=== PATIENT | male | born 1965 | race American Indian/Alaskan Native ===

== ENCOUNTER 2020-12-12 17:27 | Observation (INO) | payer OTHER ==
--- NOTE | 2020-12-12 17:46 | Event Note ---
ED Screening Note ED Screening Note: Patient states that he went to his primary care doctor due to having neck pain for 4 months, he has a history of herniated disc, he denies any fall or injury He states that he went to his primary care doctor and was advised that his heart rate was high and his blood pressure was high they performed an EKG which shows a narrow complex tachycardia He denies any palpitations, feeling like his heart is racing or skipping beats He denies any chest pain, shortness of breath, numbness, abdominal pain He states his right leg feels slightly weaker but he is ambulating without difficulty He denies any tobacco use, he denies any drug use, he endorses occasional alcohol use, he denies any supplements or energy drinks He was sent by the primary care provider for SVT and right leg weakness and slurred speech Cranial nerves II through XII intact, no facial asymmetry, no pronator drift, 5 out of 5 muscle strength in the bilateral upper extremities and lower extremities, normal gait, sensation intact, no focal neuro deficits on exam I do not hear any obvious slurring of the speech and patient appropriately answers questions and is alert and oriented x4 This initial assessment/diagnostic orders/clinical plan/treatment(s) is/are subject to change based on patients health status, clinical progression and re- assessment by fellow clinical providers in the ED. Further treatment and workup at subsequent clinical providers discretion. Patient/guardian urged not to elope from the ED as their condition may be serious if not clinically assessed and managed. Initial orders include: Labs, EKG, urine
[2020-12-12 18:31] LABS: Basophils # (Auto) 0.1 K/mm3 (0.0-0.1); Basophils % (Auto) 0.5 % (0.0-1.8); Eosinophils # (Auto) 0.2 K/mm3 (0.0-0.4); Eosinophils % (Auto) 1.7 % (0.0-4.3); Hematocrit 46.3 % (35.5-45.6); Hemoglobin 15.5 gm/dl (11.8-15.2); Lymphocytes % (Auto) 31.1 % (13.4-35.0); Mean Corpuscular HGB Conc 33 % (32-34); Mean Corpuscular Volume 93 fl (84-94); Monocytes # (Auto) 0.8 K/mm3 (0.0-0.8); Monocytes % (Auto) 8.3 % (0.0-7.3); Platelet Count 271 K/mm3 (140-440)
--- NOTE | 2020-12-12 18:36 | XRay Report ---
CHEST 2 VIEWS INDICATION: SVT. COMPARISON: None FINDINGS: SUPPORT DEVICES: None. HEART: Within normal limits. LUNGS/PLEURA: No acute air space or interstitial disease. No pneumothorax. ADDITIONAL FINDINGS: None. IMPRESSION: 1. No acute findings. Signer Name: Naseem Graves MD Signed: 12/12/2020 6:31 PM Workstation Name: [id number]
[2020-12-12 18:42] LABS: Bilirubin,Urine NEG (Negative); Blood,Urine NEG (Negative); Color,Urine Yellow (Yellow); Mucus,Urine FEW /HPF; Protein,Urine <15 mg/dL mg/dL (Negative); WBC,Urine < 1.0 /HPF (0.0-6.0)
[2020-12-12 18:51] LABS: Amphetamine Screen,Urine Negative; Benzodiazepines Screen,Urine Negative; Cocaine Screen,Urine Negative; Methadone Screen,Urine Negative; Opiate Screen,Urine Negative
[2020-12-12 18:57] LABS: Alanine Aminotransferase 10 units/L (7-56); Albumin 4.6 g/dL (3.9-5); BUN/Creatinine Ratio 12; Blood Urea Nitrogen 12 mg/dL (9-20); Calcium 9.3 mg/dL (8.4-10.2); Hemolysis Index 22
[2020-12-12 19:08] LABS: Cannabinoid Screen,Urine Positive
--- NOTE | 2020-12-12 19:35 | Emergency Department Report ---
ED General Adult HPI - General Chief complaint: Neuro Symptoms/Deficit Stated complaint: SLURRED SPEECH Time Seen by Provider: 12/12/20 17:44 Source: patient Mode of arrival: Ambulatory Limitations: No Limitations - History of Present Illness Initial comments: The patient presents to the emergency department from his primary care doctor's office for slurred speech and tachycardia. Patient states that he went to a doctor's office today for follow-up appointment for his neck pain due to bulging disc. Patient states that this doctor has been treating his pain for his bulging disks. Patient states at that visit his blood pressure was elevated and he also had elevated heart rate so he was told to follow-up at his primary care doctor's office. Patient states upon seeing his primary care physician today he was told to come to the emergency department for evaluation. Patient states he said intermittent slurred speech since Wednesday and states that his slurred speech comes and goes at times. Patient endorses mild chest tightness but denies zo chest pain. -: Gradual Location: chest Radiation: non-radiation Severity scale (0 -10): 1 Quality: dull Consistency: constant Improves with: none Worsens with: none Associated Symptoms: denies other symptoms Treatments Prior to Arrival: none - Related Data Allergies Allergy/AdvReac Type Severity Reaction Status Date / Time No Known Allergies Allergy Unverified 12/12/20 17:29 ED Review of Systems ROS: Stated complaint: SLURRED SPEECH Other details as noted in HPI Constitutional: denies: chills, fever Eyes: denies: eye pain, eye discharge, vision change ENT: denies: ear pain, throat pain Respiratory: denies: cough, shortness of breath, wheezing Cardiovascular: palpitations. denies: chest pain Endocrine: no symptoms reported Gastrointestinal: denies: abdominal pain, nausea, diarrhea Genitourinary: denies: urgency, dysuria Musculoskeletal: denies: back pain, joint swelling, arthralgia Skin: denies: rash, lesions Neurological: denies: headache, weakness, paresthesias Psychiatric: denies: anxiety, depression Hematological/Lymphatic: denies: easy bleeding, easy bruising ED Past Medical Hx - Past Medical History Previous Medical History?: Yes Hx Hypertension: Yes Additional medical history: SLIPPED DISC IN NECK - Surgical History Past Surgical History?: No - Social History Smoking Status: Never Smoker Substance Use Type: None ED Physical Exam - General Limitations: No Limitations General appearance: alert, in no apparent distress - Head Head exam: Present: atraumatic, normocephalic - Eye Eye exam: Present: normal appearance, PERRL - ENT ENT exam: Present: mucous membranes moist - Neck Neck exam: Present: normal inspection - Respiratory Respiratory exam: Present: normal lung sounds bilaterally. Absent: respiratory distress - Cardiovascular Cardiovascular Exam: Present: normal rhythm, tachycardia. Absent: systolic murmur, diastolic murmur, rubs, gallop - GI/Abdominal GI/Abdominal exam: Present: soft, normal bowel sounds. Absent: distended, tenderness - Rectal Rectal exam: Present: deferred - Extremities Exam Extremities exam: Present: normal inspection - Back Exam Back exam: Present: normal inspection - Neurological Exam Neurological exam: Present: alert, oriented X3, CN II-XII intact. Absent: motor sensory deficit - Psychiatric Psychiatric exam: Present: normal affect, normal mood - Skin Skin exam: Present: warm, dry, intact, normal color. Absent: rash ED Course Vital Signs 12/12/20 12/12/20 12/12/20 17:32 18:47 18:48 Temperature 98.8 F Pulse Rate 121 H 111 H 112 H Respiratory 20 18 18 Rate Blood Pressure 147/104 Blood Pressure 134/90 [Left] O2 Sat by Pulse 97 96 96 Oximetry 12/12/20 12/12/20 12/12/20 19:01 19:31 20:01 Temperature Pulse Rate 110 H 117 H 110 H Respiratory 17 22 Rate Blood Pressure 131/89 147/95 144/95 Blood Pressure [Left] O2 Sat by Pulse 95 97 96 Oximetry 12/12/20 12/12/20 12/12/20 20:31 21:00 22:44 Temperature Pulse Rate 112 H 109 H Respiratory 23 28 H 18 Rate Blood Pressure 144/95 134/96 Blood Pressure [Left] O2 Sat by Pulse 94 93 Oximetry ED Medical Decision Making - Lab Data Result diagrams: 12/12/20 18:00 12/12/20 18:00 Lab Results 12/12/20 12/12/20 12/12/20 Range/Units 18:00 18:00 18:00 WBC 9.5 (4.5-11.0) K/mm3 RBC 5.00 (3.65-5.03) M/mm3 Hgb 15.5 H (11.8-15.2) gm/dl Hct 46.3 H (35.5-45.6) % MCV 93 (84-94) fl MCH 31 (28-32) pg MCHC 33 (32-34) % RDW 14.0 (13.2-15.2) % Plt Count 271 (140-440) K/mm3 Lymph % (Auto) 31.1 (13.4-35.0) % Adams % (Auto) 8.3 H (0.0-7.3) % Eos % (Auto) 1.7 (0.0-4.3) % Baso % (Auto) 0.5 (0.0-1.8) % Lymph # (Auto) 3.0 (1.2-5.4) K/mm3 Adams # (Auto) 0.8 (0.0-0.8) K/mm3 Eos # (Auto) 0.2 (0.0-0.4) K/mm3 Baso # (Auto) 0.1 (0.0-0.1) K/mm3 Seg Neutrophils % 58.4 (40.0-70.0) % Seg Neutrophils # 5.5 (1.8-7.7) K/mm3 Sodium 135 L (137-145) mmol/L Potassium 3.8 (3.6-5.0) mmol/L Chloride 98.6 (98-107) mmol/L Carbon Dioxide 26 (22-30) mmol/L Anion Gap 14 mmol/L BUN 12 (9-20) mg/dL Creatinine 1.0 (0.8-1.3) mg/dL Estimated GFR > 60 ml/min BUN/Creatinine Ratio 12 % Glucose 103 H (75-100) mg/dL Calcium 9.3 (8.4-10.2) mg/dL Magnesium 1.90 (1.7-2.3) mg/dL Total Bilirubin 0.40 (0.1-1.2) mg/dL AST 16 (5-40) units/L ALT 10 (7-56) units/L Alkaline Phosphatase 68 (35-129) units/L Total Creatine Kinase 146 (55-170) units/L Troponin T < 0.010 (0.00-0.029) ng/mL Total Protein 7.5 (6.3-8.2) g/dL Albumin 4.6 (3.9-5) g/dL Albumin/Globulin Ratio 1.6 % TSH 2.140 (0.270-4.200) mlU/mL Urine Color (Yellow) Urine Turbidity (Clear) Urine pH (5.0-7.0) Ur Specific [place] (1.003-1.030) Urine Protein (Negative) mg/dL Urine Glucose (UA) (Negative) mg/dL Urine Ketones (Negative) mg/dL Urine Blood (Negative) Urine Nitrite (Negative) Urine Bilirubin (Negative) Urine Urobilinogen (<2.0) mg/dL Ur Leukocyte Esterase (Negative) Urine WBC (Auto) (0.0-6.0) /HPF Urine RBC (Auto) (0.0-6.0) /HPF Urine Mucus /HPF Urine Opiates Screen Urine Methadone Screen Ur Barbiturates Screen Ur Phencyclidine Scrn Ur Amphetamines Screen U Benzodiazepines Scrn Urine Cocaine Screen U Marijuana (THC) Screen Drugs of Abuse Note 12/12/20 12/12/20 Range/Units Unknown Unknown WBC (4.5-11.0) K/mm3 RBC (3.65-5.03) M/mm3 Hgb (11.8-15.2) gm/dl Hct (35.5-45.6) % MCV (84-94) fl MCH (28-32) pg MCHC (32-34) % RDW (13.2-15.2) % Plt Count (140-440) K/mm3 Lymph % (Auto) (13.4-35.0) % Adams % (Auto) (0.0-7.3) % Eos % (Auto) (0.0-4.3) % Baso % (Auto) (0.0-1.8) % Lymph # (Auto) (1.2-5.4) K/mm3 Adams # (Auto) (0.0-0.8) K/mm3 Eos # (Auto) (0.0-0.4) K/mm3 Baso # (Auto) (0.0-0.1) K/mm3 Seg Neutrophils % (40.0-70.0) % Seg Neutrophils # (1.8-7.7) K/mm3 Sodium (137-145) mmol/L Potassium (3.6-5.0) mmol/L Chloride (98-107) mmol/L Carbon Dioxide (22-30) mmol/L Anion Gap mmol/L BUN (9-20) mg/dL Creatinine (0.8-1.3) mg/dL Estimated GFR ml/min BUN/Creatinine Ratio % Glucose (75-100) mg/dL Calcium (8.4-10.2) mg/dL Magnesium (1.7-2.3) mg/dL Total Bilirubin (0.1-1.2) mg/dL AST (5-40) units/L ALT (7-56) units/L Alkaline Phosphatase (35-129) units/L Total Creatine Kinase (55-170) units/L Troponin T (0.00-0.029) ng/mL Total Protein (6.3-8.2) g/dL Albumin (3.9-5) g/dL Albumin/Globulin Ratio % TSH (0.270-4.200) mlU/mL Urine Color Yellow (Yellow) Urine Turbidity Clear (Clear) Urine pH 6.0 (5.0-7.0) Ur Specific [place] 1.021 (1.003-1.030) Urine Protein <15 mg/dl (Negative) mg/dL Urine Glucose (UA) Neg (Negative) mg/dL Urine Ketones Neg (Negative) mg/dL Urine Blood Neg (Negative) Urine Nitrite Neg (Negative) Urine Bilirubin Neg (Negative) Urine Urobilinogen 2.0 (<2.0) mg/dL Ur Leukocyte Esterase Neg (Negative) Urine WBC (Auto) < 1.0 (0.0-6.0) /HPF Urine RBC (Auto) 1.0 (0.0-6.0) /HPF Urine Mucus Few /HPF Urine Opiates Screen Negative Urine Methadone Screen Negative Ur Barbiturates Screen Negative Ur Phencyclidine Scrn Negative Ur Amphetamines Screen Negative U Benzodiazepines Scrn Negative Urine Cocaine Screen Negative U Marijuana (THC) Screen Positive Drugs of Abuse Note Disclamer - EKG Data -: EKG Interpreted by Me EKG shows normal: sinus rhythm Rate: tachycardia - Radiology Data Radiology results: report reviewed - Medical Decision Making Spoke to teleneurology as a consultation and suggestions for the patient to be admitted and have a CVA work-up done including MRI. Critical care attestation.: If time is entered above; I have spent that time in minutes in the direct care of this critically ill patient, excluding procedure time. ED Disposition Clinical Impression: Slurred speech Disposition: DC-09 OP ADMIT IP TO THIS HOSP Is pt being admited?: Yes Does the pt Need Aspirin: Yes Condition: Fair Referrals: VANESSA HILARIO MD [Primary Care Provider] - 3-5 Days - Assessment Assessment Interval: Baseline - Level of Consciousness 1a. Level of Consciousness: alert/keenly responsive - LOC Questions 1b. LOC Questions: answers both correctly - LOC Command 1c. LOC Commands: performs tasks correctly - Best Gaze 2. Best Gaze: normal - Visual 3. Visual: no visual loss - Facial Palsy 4. Facial Palsy: normal symmetrical movement - Motor Arm 5a. Motor Arm Left: no drift 5b. Motor Arm Right: no drift - Motor Leg 6a. Motor Leg Left: no drift 6b. Motor Leg Right: no drift - Limb Ataxia 7. Limb Ataxia: absent - Sensory 8. Sensory: normal - Best Language 9. Best Language: no aphasia - Dysarthria 10. Dysarthria: normal - Extinction and Inattention 11. Extinction/Inattention: no abnormality - Scoring Total Score: 0 Stroke Severity: No Stroke Symptoms
--- NOTE | 2020-12-12 21:43 | Cat Scan Report ---
CT HEAD WITHOUT CONTRAST INDICATION / CLINICAL INFORMATION: slurred speech. TECHNIQUE: All CT scans at this location are performed using CT dose reduction for ALARA by means of automated e xposure control. COMPARISON: None available. FINDINGS: HEMORRHAGE: No evidence of intracranial hemorrhage or extra-axial fluid collection. EXTRA-AXIAL SPACES: Cortical sulci, sylvian fissures and basilar cisterns have an unremarkable appear ance. VENTRICULAR SYSTEM: The third and lateral ventricles are of normal size and configuration. CEREBRAL PARENCHYMA: No areas of abnormal brain parenchymal attenuation are identified. There is no i ndication of recent infarction. MIDLINE SHIFT OR HERNIATION: There is no mass effect. CEREBELLUM / BRAINSTEM: Brainstem and cerebellum have an unremarkable appearance. MIDLINE STRUCTURES:No abnormalities of the pituitary gland or pineal region are identified. INTRACRANIAL VESSELS:No abnormalities are identified on this noncontrast head CT. ORBITS: visualized portions of the orbits have an unremarkable appearance. SOFT TISSUES of HEAD: No significant abnormality. CALVARIUM: Evaluation of bone windows reveals no abnormalities. PARANASAL SINUSES / MASTOID AIR CELLS: Visualized portions of the paranasal sinuses are free from inf lammatory mucosal disease. Mastoid air cells are normally pneumatized. IMPRESSION: 1. No significant intracranial abnormality. Signer Name: Cuauhtemoc Nagy MD Signed: 12/12/2020 9:38 PM Workstation Name: [id number]
--- NOTE | 2020-12-12 21:59 | Cat Scan Report ---
CTA CHEST WITH CONTRAST INDICATION / CLINICAL INFORMATION: tachycardia with chest pain. TECHNIQUE: Axial CT images were obtained through the chest after injection of IV contrast. 3 plane MIP and/or 3D reconstructions were produced. All CT scans at this location are performed using CT dose reduction f or ALARA by means of automated exposure control. COMPARISON: Prior chest radiograph 12/12/2020. FINDINGS: PULMONARY ARTERIES: No pulmonary emboli. THORACIC AORTA: Bovine aortic arch. HEART: No significant abnormality. CORONARY ARTERIES: No significant calcification. MEDIASTINUM / REGINALDO: Calcified lymph nodes are noted in the left hilar region and mediastinum. PLEURA: No pleural effusion. No pneumothorax. LUNGS: Bibasilar atelectasis and hypoventilatory changes at the lung bases. ADDITIONAL FINDINGS: None. UPPER ABDOMEN: No acute findings. Mild elevation of left diaphragm. SKELETAL STRUCTURES: Mild multilevel degenerative changes are noted of the spine. No aggressive osseo us lesions. IMPRESSION: 1. No CT evidence for pulmonary embolism. 2. No acute findings. Signer Name: Enrike Schreiber MD Signed: 12/12/2020 9:54 PM Workstation Name: [id number]
--- NOTE | 2020-12-13 00:08 | Consultation ---
History of Present Illness History of present illness: [facility] Consult Note # Demographics Consult Type: General Neurology Patient Location: Emergency Room First Name: Devin Last Name: Amando Age: 55 Gender: Male # HPI History: 55 year-old male presents with intermittent dysarthria over the last 4 days. Symptoms returned in the ED and again resolved. Head CT was negative. # Exam Vitals: vital signs reviewed # Data Head CT: no bleed, per radiologist read # Assessment Impression: Recurrent episodes of dysarthria - possible TIAs # Plan Thrombolytic/Intervention: NOT IV Thrombolytic or IA Intervention Thrombolytic Exclusion (< 3 hour window): non-disabling deficit Thrombolytic Exclusion: > 4.5 hours Intraarterial Exclusion: non-disabling Labs: hemoglobin A1c, lipid panel Imaging: (urgency: routine admission): CT Angiogram Head and CT Angiogram Neck AND call back with results if abnormal, MRI Brain without contrast Diagnostic Test: echo with bubble study Therapy/Evaluation: NPO until swallow evaluation, PT/OT evaluation, speech/swallow consultation Medication: aspirin 325 mg daily, start statin with goal of LDL < 70 Other: permissive hypertension, telemetry monitoring, I have discussed my recommendations with the referring provider Disposition: admit Medications and Allergies Allergies Allergy/AdvReac Type Severity Reaction Status Date / Time No Known Allergies Allergy Unverified 12/12/20 17:29 Physical Examination - Vital Signs Vital Signs: Vital Signs Temp Pulse Resp BP Pulse Ox 98.8 F 121 H 20 147/104 97 12/12/20 17:32 12/12/20 17:32 12/12/20 17:32 12/12/20 17:32 12/12/20 17:32 Results - Laboratory Findings CBC and BMP: 12/12/20 18:00 12/12/20 18:00 Abnormal Lab Findings: Abnormal Labs 12/12/20 12/12/20 18:00 18:00 Hgb 15.5 H Hct 46.[address] [place] % (Auto) 8.3 H Sodium 135 L Glucose 103 H
[2020-12-13] MEDS ORDERED: ASPIRIN 81 MG TAB CHEW PO ONE (00:59)
[2020-12-13] MEDS ORDERED: METOCLOPRAMIDE 10 MG TAB PO PRN (01:41)
[2020-12-13] MEDS ORDERED: MAGNESIUM HYDROXIDE (MOM) ORAL LIQD UDC PO PRN ×2 (01:41)
[2020-12-13] MEDS ORDERED: ONDANSETRON 4 MG/2 ML INJ IV PRN ×2 (01:41)
[2020-12-13] MEDS ORDERED: MORPHINE 2 MG/1 ML INJ IV PRN (01:41)
[2020-12-13] MEDS ORDERED: ACETAMINOPHEN 325 MG TAB PO PRN ×2 (01:41)
[2020-12-13] MEDS ORDERED: PROMETHAZINE 25 MG RECT SUPP PR PRN (01:41)
--- NOTE | 2020-12-13 02:03 | History and Physical Report ---
History of Present Illness Date of examination: 12/13/20 Date of admission: 12/13/20 00:52 Chief complaint: Slurred speech History of present illness: 55-year-old -[place] male with significant history of hypertension presents in the emergency room today with complaint of slurred speech and tachycardia. He had gone to the doctor's office to follow-up on his neck pain due to bulging disc when he was found to have elevated blood pressure. Was thereafter encouraged to report to the emergency room for further evaluation of his elevated blood pressure and the tachycardia. He thereafter had been having intermittent slurred speech which goes and comes. He had some chest discomfort but denies any chest pain. Patient denies any shortness of breath, no nausea vomiting, no abdominal pain, no headache or dizziness, no diaphoresis. Patient indicates that he has been having intermittent slurred speech over the past few days but became more prominent today. Work-up in the emergency room today has been unremarkable. He was evaluated by the neurologist who recommended of work-up for TIA versus CVA. Past History Past Medical History: hypertension, other (Slipped disc in neck) Past Surgical History: No surgical history Social history: no significant social history Family history: no significant family history Medications and Allergies Allergies Allergy/AdvReac Type Severity Reaction Status Date / Time No Known Allergies Allergy Verified 12/13/20 02:05 Review of Systems Constitutional: no fever, no chills Ears, nose, mouth and throat: no nasal congestion, no sore throat Cardiovascular: no chest pain, no palpitations Respiratory: no cough, no shortness of breath Gastrointestinal: no abdominal pain, no nausea, no vomiting, no diarrhea Genitourinary Male: no dysuria, no hematuria, no flank pain, no nocturia Musculoskeletal: no neck pain, no low back pain Integumentary: no rash, no pruritis Neurological: no headaches, no confusion Psychiatric: no anxiety, no depression Endocrine: no polyphagia, no polydipsia, no polyuria, no nocturia Exam - Constitutional Vitals: Temp Pulse Resp BP Pulse Ox 98.8 F 115 H 16 134/96 97 12/12/20 17:32 12/13/20 01:54 12/13/20 01:54 12/12/20 21:00 12/13/20 01:54 General appearance: Present: no acute distress, well-nourished - EENT Eyes: Present: PERRL, EOM intact. Absent: scleral icterus ENT: hearing intact, clear oral mucosa, dentition normal - Neck Neck: Present: supple, normal ROM - Respiratory Respiratory effort: normal Respiratory: bilateral: CTA - Cardiovascular Rhythm: regular Heart Sounds: Present: S1 & S2. Absent: gallop, systolic murmur, diastolic murmur, rub, click - Extremities Extremities: no ischemia, pulses intact, pulses symmetrical, No edema, normal temperature, normal color, Full ROM Peripheral Pulses: within normal limits - Abdominal General gastrointestinal: Present: soft, non-tender, non-distended, normal bowel sounds. Absent: mass - Integumentary Integumentary: Present: clear, warm, dry, normal turgor. Absent: rash - Musculoskeletal Musculoskeletal: strength equal bilaterally - Psychiatric Psychiatric: appropriate mood/affect, intact judgment & insight, cooperative - Neurologic Neurologic: CNII-XII intact, no focal deficits, moves all extremities, other (Intermittently dysarthric) HEART Score - HEART Score Troponin: Troponin T < 0.010 ng/mL (0.00-0.029) 12/12/20 18:00 Results - Labs CBC & Chem 7: 12/12/20 18:00 12/12/20 18:00 Labs: Abnormal lab results 12/12/20 12/12/20 Range/Units 18:00 18:00 Hgb 15.5 H (11.8-15.2) gm/dl Hct 46.3 H (35.5-45.6) % Hughes % (Auto) 8.3 H (0.0-7.3) % Sodium 135 L (137-145) mmol/L Glucose 103 H (75-100) mg/dL Assessment and Plan - Patient Problems (1) Slurred speech Current Visit: Yes Status: Acute Plan to address problem: Patient admitted and placed on telemetry. He will be worked up for possible TIA/CVA. CT scan of the head has been unremarkable. We will schedule patient for MRI of the brain, carotid Doppler and echocardiogram. We will place consult to speech therapy for evaluation and neurology. Patient will be started on daily aspirin and statin. (2) Hypertension Current Visit: Yes Status: Acute Plan to address problem: We will resume routine home medications and monitor vital signs closely. (3) DVT prophylaxis Current Visit: Yes Status: Acute Plan to address problem: Patient placed on subcutaneous heparin. (4) Full code status Current Visit: Yes Status: Acute Plan to address problem: Patient is full code.
--- NOTE | 2020-12-13 09:27 | Magnetic Resonance Report ---
NONENHANCED MR SCAN OF THE BRAIN: INDICATION / CLINICAL INFORMATION: MAIN. Slurred speech TECHNIQUE: Multiplanar, multisequence MR images of the brain obtained. COMPARISON: CT scan of the head from 12/12/2020 FINDINGS: BRAIN / INTRACRANIAL CONTENTS: No acute ischemia, acute hemorrhage, mass effect, midline shift, or hy drocephalus. No chronic infarct or atrophy. No significant white matter abnormality. CRANIOCERVICAL JUNCTION: No significant abnormality. VASCULAR FLOW-VOIDS: No significant abnormality. ORBITS: No significant abnormality of visualized orbits. SINUSES / MASTOIDS: No significant abnormality of visualized sinuses and mastoid air cells. ADDITIONAL FINDINGS: None. IMPRESSION: 1. Normal MR scan of the brain Signer Name: Howard Bryan MD Signed: 12/13/2020 9:22 AM Workstation Name: [id number]
[2020-12-13] MEDS: ASPIRIN 325 MG TAB PO SCH (10:55)
--- NOTE | 2020-12-13 11:26 | Vascular Lab Report ---
"DUPLEX DOPPLER ULTRASOUND CAROTID, BILATERAL INDICATION / CLINICAL INFORMATION: stroke. COMPARISON: None available. FINDINGS: RIGHT CAROTID: - PLAQUE ESTIMATE (%): < 50% - CCA velocity: 108 cm/sec. - ICA peak systolic velocity: 122 cm/sec. - ICA/CCA PSV Ratio: 1.1 Right Vertebral Artery: Antegrade flow. LEFT CAROTID: - PLAQUE ESTIMATE: < 50% - CCA velocity: 116 cm/sec. - ICA peak systolic velocity: 87 cm/sec. - ICA/CCA PSV Ratio: 0.8 Left Vertebral Artery: Antegrade flow. IMPRESSION: 1. Right Internal Carotid Artery: Less than 50% diameter stenosis. 2. Left Internal Carotid Artery: Less than 50% diameter stenosis. Velocity criteria are extrapolated from diameter data as defined by the Society of Radiologists in [place] [facility] Consensus Conference, Radiology 2003; 229;[id number]. Degree of || ICA PSV || Plaque || ICA/CCA Stenosis (%) || (cm/sec) || estimate (%) || PSV Ratio Normal ............. || ...<125........... || ...None......... || ...<2.0 <50................... || ...<125........... || ......<50......... || ...<2.0 50-69................ || ..125-230...... || ......>50......... || 2.0-4.0 >70 but <100... || >230.............. || .......>50........ || ...>4.0 Near occlusion || High/low/none || ...visible....... || variable Total occlusion || ....None........... || ..no lumen... || ....N/A Signer Name: Maycol RANGEL Signed: 12/13/2020 11:21 AM Workstation Name: [id number]
--- NOTE | 2020-12-13 17:18 | Progress Note ---
Assessment and Plan Assessment and plan: 55-year-old male who presented with hypertensive urgency. - Patient Problems (1) Slurred speech Current Visit: Yes Status: Acute Plan to address problem: Patient admitted and placed on telemetry. Neurology consulted CT negative for CVA MRI negative for CVA Speech is improving Echocardiogram pending (2) Hypertension Current Visit: Yes Status: Acute Plan to address problem: Blood pressure improved (3) DVT prophylaxis Current Visit: Yes Status: Acute Plan to address problem: Patient placed on subcutaneous heparin. (4) Full code status Current Visit: Yes Status: Acute Plan to address problem: Patient is full code. Disposition: Continue to monitor patient overnight, anticipate discharge within the next 24 hours. History Interval history: 12/13/2020: Patient seen and examined, states that his speech is improving. Hospitalist Physical - Constitutional Vitals: Temp Pulse Resp BP Pulse Ox 97.9 F 93 H 18 149/98 95 12/13/20 16:29 12/13/20 16:29 12/13/20 16:29 12/13/20 16:29 12/13/20 16:29 General appearance: Present: no acute distress, well-nourished HEART Score - HEART Score Troponin: Troponin T < 0.010 ng/mL (0.00-0.029) 12/12/20 18:00 Results - Labs CBC & Chem 7: 12/12/20 18:00 12/12/20 18:00 Labs: Laboratory Last Values WBC 9.5 K/mm3 (4.5-11.0) 12/12/20 18:00 RBC 5.00 M/mm3 (3.65-5.03) 12/12/20 18:00 Hgb 15.5 gm/dl (11.8-15.2) H 12/12/20 18:00 Hct 46.3 % (35.5-45.6) H 12/12/20 18:00 MCV 93 fl (84-94) 12/12/20 18:00 MCH 31 pg (28-32) 12/12/20 18:00 MCHC 33 % (32-34) 12/12/20 18:00 RDW 14.0 % (13.2-15.2) 12/12/20 18:00 Plt Count 271 K/mm3 (140-440) 12/12/20 18:00 Lymph % (Auto) 31.1 % (13.4-35.0) 12/12/20 18:00 Dougherty % (Auto) 8.3 % (0.0-7.3) H 12/12/20 18:00 Eos % (Auto) 1.7 % (0.0-4.3) 12/12/20 18:00 Baso % (Auto) 0.5 % (0.0-1.8) 12/12/20 18:00 Lymph # (Auto) 3.0 K/mm3 (1.2-5.4) 12/12/20 18:00 Dougherty # (Auto) 0.8 K/mm3 (0.0-0.8) 12/12/20 18:00 Eos # (Auto) 0.2 K/mm3 (0.0-0.4) 12/12/20 18:00 Baso # (Auto) 0.1 K/mm3 (0.0-0.1) 12/12/20 18:00 Seg Neutrophils % 58.4 % (40.0-70.0) 12/12/20 18:00 Seg Neutrophils # 5.5 K/mm3 (1.8-7.7) 12/12/20 18:00 Sodium 135 mmol/L (137-145) L 12/12/20 18:00 Potassium 3.8 mmol/L (3.6-5.0) 12/12/20 18:00 Chloride 98.6 mmol/L (98-107) 12/12/20 18:00 Carbon Dioxide 26 mmol/L (22-30) 12/12/20 18:00 Anion Gap 14 mmol/L 12/12/20 18:00 BUN 12 mg/dL (9-20) 12/12/20 18:00 Creatinine 1.0 mg/dL (0.8-1.3) 12/12/20 18:00 Estimated GFR > 60 ml/min 12/12/20 18:00 BUN/Creatinine Ratio 12 % 12/12/20 18:00 Glucose 103 mg/dL (75-100) H 12/12/20 18:00 Calcium 9.3 mg/dL (8.4-10.2) 12/12/20 18:00 Magnesium 1.90 mg/dL (1.7-2.3) 12/12/20 18:00 Total Bilirubin 0.40 mg/dL (0.1-1.2) 12/12/20 18:00 AST 16 units/L (5-40) 12/12/20 18:00 ALT 10 units/L (7-56) 12/12/20 18:00 Alkaline Phosphatase 68 units/L (35-129) 12/12/20 18:00 Total Creatine Kinase 146 units/L (55-170) 12/12/20 18:00 Troponin T < 0.010 ng/mL (0.00-0.029) 12/12/20 18:00 Total Protein 7.5 g/dL (6.3-8.2) 12/12/20 18:00 Albumin 4.6 g/dL (3.9-5) 12/12/20 18:00 Albumin/Globulin Ratio 1.6 % 12/12/20 18:00 TSH 2.140 mlU/mL (0.270-4.200) 12/12/20 18:00 Urine Color Yellow (Yellow) 12/12/20 Unknown Urine Turbidity Clear (Clear) 12/12/20 Unknown Urine pH 6.0 (5.0-7.0) 12/12/20 Unknown Ur Specific Gilbert 1.021 (1.003-1.030) 12/12/20 Unknown Urine Protein <15 mg/dl mg/dL (Negative) 12/12/20 Unknown Urine Glucose (UA) Neg mg/dL (Negative) 12/12/20 Unknown Urine Ketones Neg mg/dL (Negative) 12/12/20 Unknown Urine Blood Neg (Negative) 12/12/20 Unknown Urine Nitrite Neg (Negative) 12/12/20 Unknown Urine Bilirubin Neg (Negative) 12/12/20 Unknown Urine Urobilinogen 2.0 mg/dL (<2.0) 12/12/20 Unknown Ur Leukocyte Esterase Neg (Negative) 12/12/20 Unknown Urine WBC (Auto) < 1.0 /HPF (0.0-6.0) 12/12/20 Unknown Urine RBC (Auto) 1.0 /HPF (0.0-6.0) 12/12/20 Unknown Urine Mucus Few /HPF 12/12/20 Unknown Urine Opiates Screen Negative 12/12/20 Unknown Urine Methadone Screen Negative 12/12/20 Unknown Ur Barbiturates Screen Negative 12/12/20 Unknown Ur Phencyclidine Scrn Negative 12/12/20 Unknown Ur Amphetamines Screen Negative 12/12/20 Unknown U Benzodiazepines Scrn Negative 12/12/20 Unknown Urine Cocaine Screen Negative 12/12/20 Unknown U Marijuana (THC) Screen Positive 12/12/20 Unknown Drugs of Abuse Note Disclamer 12/12/20 Unknown Rodas/IV: Voiding Method Toilet Active Medications - Current Medications Current Medications: Generic Name Dose Route Start Last Admin Trade Name Freq PRN Reason Stop Dose Admin Acetaminophen 650 mg 12/13/20 01:41 Acetaminophen 325 Mg Tab PO Q4H PRN Pain MILD(1-3)/Fever >100.5/KANG Aspirin 325 mg 12/13/20 10:00 12/13/20 10:55 Aspirin 325 Mg Tab PO 325 mg QDAY JIM Administration Atorvastatin Calcium 40 mg 12/13/20 22:00 Atorvastatin 40 Mg Tab PO QHS JIM Bisacodyl 10 mg 12/13/20 01:41 Bisacodyl 10 Mg Rect Supp TX QDAY PRN Constipation Magnesium Hydroxide 30 ml 12/13/20 01:41 Magnesium Hydroxide (Mom) Oral Liqd Udc PO Q4H PRN Constipation Metoclopramide HCl 10 mg 12/13/20 01:41 Metoclopramide 10 Mg Tab PO Q6H PRN Nausea And Vomiting Morphine Sulfate 2 mg 12/13/20 01:41 Morphine 2 Mg/1 Ml Inj IV Q4H PRN Pain, Moderate (4-6) Ondansetron HCl 4 mg 12/13/20 01:41 Ondansetron 4 Mg/2 Ml Inj IV Q8H PRN Nausea And Vomiting Promethazine HCl 25 mg 12/13/20 01:41 Promethazine 25 Mg Rect Supp TX Q6H PRN Nausea And Vomiting Sodium Chloride 10 ml 12/13/20 10:00 12/13/20 10:55 Sodium Chloride 0.9% 10 Ml Flush Syringe IV 10 ml BID JIM Administration Sodium Chloride 10 ml 12/13/20 01:41 Sodium Chloride 0.9% 10 Ml Flush Syringe IV PRN PRN LINE FLUSH Nutrition/Malnutrition Assess - Dietary Evaluation Nutrition/Malnutrition Findings: Nutrition Notes Start: 12/13/20 12:38 Freq: Status: Active Protocol: Document 12/13/20 12:39 AT (Rec: 12/13/20 12:51 AT [id number]) Co-Sign 12/13/20 12:39 CW Nutrition Notes Need for Assessment generated from: MD Order,Education Initial or Follow up Assessment Current Diagnosis Hypertension Other Pertinent Diagnosis TIA versus CVA, Tachycardia, Dysarthria Current Diet Cardiac diet Labs/Tests BP 154/104 Na 135 Pertinent Medications Reglan Dulcolax Lipitor Height 5 ft 8 in Weight 81.2 kg Usual Body Weight 81.8 kg [place] Body Weight (kg) 70.00 BMI 27.2 Intake Prior to Admission Good Weight Status Overweight Subjective/Other Information Consult for nutrition recommendations and diet education. Pt declined nutrition education. Pt is currently on the appropriate diet. Pt just arrived at hospital and has not gotten a chance to eat meals. 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 Will follow for intakes. Pt reports no GI symptoms or changes in appetite. Burn Absent Trauma Absent GI Symptoms None Minimum of two criteria No physical signs of malnutrition #1 Nutrition Diagnosis Food and nutrition-related knowledge deficit Etiology HTN As Evidenced by Signs and Symptoms BP 154/104, pt refused education Is patient on ventilator? No Is Patient Ambulatory and/or Out of Bed Yes REE-([place]-St. Jeor-ambulatory/OOB) [ 2120.950 NUTR.[id number]] Calculation Used for Recommendations [place]-St Jeor Additional Notes PRO needs: 65-81g (0.8-1g/kg) Fluid needs: 1 mL/kcal or per MD Nutrition Intervention Change Diet Order: Continue diet as ordered Teaching Recipient Patient Learning Readiness Pt refused Teaching Methods Discussion Barriers to Learning No Barriers RD phone number provided Yes Patient aware of follow up options Yes Goal #1 Understand the importance of Cardiac diet Goal #2 BP control Goal #3 Meet at least 75% of EER and protein needs via diet Anticipated Discharge Needs: Cardiac diet Follow-Up By: 12/17/20 Additional Comments F/U for stable intakes, diet education needs
[2020-12-13] MEDS ORDERED: hydrALAZINE 20 MG/1 ML INJ IV PRN (17:20)
--- NOTE | 2020-12-13 18:43 | Electrocardiograph Report ---
[facility] Test Date: 2020-12-12 Test Time: 17:47:40 Pat Name: COLE REYES Department: Room: A470 1 Gender: M Employee Benefits Administrator: : 1965 Requested By: KEEGAN GARCIA Order Number: [id number] Reading MD: Gil Warner Measurements Intervals [place] Rate: 112 P: 39 HI: 195 QRS: 45 QRSD: 95 T: 56 QT: 323 QTc: 441 Interpretive Statements Sinus tachycardia No previous ECG available for comparison Electronically Signed On 12-13-2020 18:42:52 EDT by Gil Warner
[2020-12-13] MEDS: amLODIPine 5 MG TAB PO SCH (18:44)
[2020-12-14 04:37] VITALS: BP 126/80
[2020-12-14 05:58] LABS: Basophils % (Auto) 0.3 % (0.0-1.8); Eosinophils # (Auto) 0.3 K/mm3 (0.0-0.4); Eosinophils % (Auto) 3.6 % (0.0-4.3); Hematocrit 44.8 % (35.5-45.6); Lymphocytes # (Auto) 2.7 K/mm3 (1.2-5.4); Lymphocytes % (Auto) 32.8 % (13.4-35.0); Mean Corpuscular HGB Conc 33 % (32-34); Mean Corpuscular Volume 93 fl (84-94); Monocytes # (Auto) 0.6 K/mm3 (0.0-0.8); Monocytes % (Auto) 7.3 % (0.0-7.3); Platelet Count 255 K/mm3 (140-440); Red Blood Count 4.83 M/mm3 (3.65-5.03); Red Cell Distribution Width 14.2 % (13.2-15.2)
[2020-12-14 06:03] LABS: INR 1.16 (0.87-1.13)
[2020-12-14 06:15] LABS: Alanine Aminotransferase 9 units/L (7-56); Albumin 3.8 g/dL (3.9-5); BUN/Creatinine Ratio 13; Blood Urea Nitrogen 13 mg/dL (9-20); Calcium 8.8 mg/dL (8.4-10.2); Chol/HDL Ratio 5.02 %; HDL Cholesterol 42 mg/dL (40-59); Hemolysis Index 16; LDL Cholesterol,Direct 150 mg/dL (50-130)
--- NOTE | 2020-12-14 09:23 | Discharge Summary ---
Providers - Providers Date of Admission: 12/13/20 00:52 Date of discharge: 12/14/20 Attending physician: VAISHNAVI GONZALEZ MD 12/13/20 Consult to Physician [CONS] Routine Comment: Consulting Provider: SHER FERNANDEZ Physician Instructions: Reason For Exam: Slurred speech. Rule out CVA 12/13/20 01:41 Consult to Dietitian/Nutrition [CONS] Routine Physician Instructions: Reason For Exam: Reason for Consult: Nutrition Recommendations Reason for Consult: Diet education Occupational Therapy Evaluate and Treat [CONS] Routine Comment: Reason For Exam: Neuro deficits Physical Therapy Evaluation and Treat [CONS] Routine Comment: Reason For Exam: Neuro deficits 12/13/20 04:30 Speech Therapy Evaluation and Treat [CONS] Routine Reason For Exam: Dysarthria Primary care physician: VANESSA HILARIO Hospitalization Reason for admission: Hypertensive urgency, dysarthria Condition: Good Hospital course: 55-year-old male who presented with hypertensive urgency. - Patient Problems (1) Slurred speech Current Visit: Yes Status: Acute Plan to address problem: Patient admitted and placed on telemetry. Neurology consulted CT and MRI of the brain without any abnormalities for acute CVA. Echocardiogram showed systolic function with LVEF of 55 to 60%. Patient does have a PFO. Th ere is mild diastolic dysfunction. Carotid Dopplers showing right and left ICA with less than 50% diameter stenosis. (2) Hypertension Current Visit: Yes Status: Acute Plan to address problem: Blood pressure improved Continue amlodipine (3) DVT prophylaxis Current Visit: Yes Status: Acute Plan to address problem: Patient placed on subcutaneous heparin. (4) Full code status Current Visit: Yes Status: Acute Plan to address problem: Patient is full code. Hyperlipidemia Statin History Interval history: 12/13/2020: Patient seen and examined, states that his speech is improving 12/14/2020: Patient seen and examined, patient is lying in bed, ate his entire breakfast and dinner last night, dysarthria has resolved. Heart rate normal sinus rhythm. Patient follow-up with her primary care physician. Disposition: TO HOME OR SELFCARE Final Discharge Diagnosis (Prints w/discharge instructions): Dysarthria, hypertension, hyperlipidemia, mild carotid stenosis Time spent for discharge: 35 minutes Core Measure Documentation - Palliative Care Palliative Care/ Comfort Measures: Not Applicable - Core Measures Any of the following diagnoses?: none Exam - Physical Exam Narrative exam: General appearance: no acute distress, well-nourished EENT: PERRL, EOM intact, hearing intact, clear oral mucosa, dentition normal Neck: Present: supple, normal ROM Respiratory: bilateral: CTA, negative: rales, rhonchi, wheezing Cardiovascular: Regular rate/rhythm, Normal S1 & S2. No gallop, rub Extremities: no ischemia, No edema, normal temperature, normal color, Full ROM Abdominal: soft, non-tender, non-distended, normal bowel sounds Integumentary: Present: clear, warm, dry Psychiatric: appropriate mood/affect, intact judgment & insight Neurologic: CNII-XII intact, moves all extremities - Constitutional Vitals: Temp Pulse Resp BP Pulse Ox 97.7 F 96 H 18 126/80 97 12/14/20 04:27 12/14/20 08:15 12/14/20 04:27 12/14/20 04:27 12/14/20 04:27 Plan Activity: no restrictions Diet: low salt Follow up with: VANESSA HILARIO MD [Primary Care Provider] - 3-5 Days Prescriptions: AtorvaSTATin [Lipitor] 40 mg PO QHS #90 tablet Aspirin [Adult Aspirin] 81 mg PO DAILY #30 tablet. amLODIPine 10 mg PO DAILY #30 tablet
[2020-12-14] MEDS: ASPIRIN 325 MG TAB PO SCH (09:52)
[2020-12-14] MEDS: amLODIPine 5 MG TAB PO SCH (09:52)
== END 2020-12-14 12:30 | disposition home or self-care (01) ==
LOC: ED 17:27 → 4A 12-13 00:52
PROVIDERS: ADMIT Internal Medicine Geriatric Medicine; ATTEND Family Medicine
DX: I10 Essential (primary) hypertension (principal); R47.81 Slurred speech; E78.5 Hyperlipidemia, unspecified; M25.50 Pain in unspecified joint; Z98.890 Other specified postprocedural states; Z79.899 Other long term (current) drug therapy
CPT/HCPCS: 36415; 70450; 70551; 71046; 71275; 80053; 80061; 80307; 81001; 82550; 83735; 84443; 84484; 85025; 85610; 92610; 93005; 93306; 93880; 97161; 97165; 99285; A9270; G0378; Q9967